=== PATIENT | female | born 1975 | race Two or more races ===

== ENCOUNTER 2022-11-23 13:38 | Emergency (ER) | payer OTHER ==
[~2022-11-23] VITALS: Ht 162.6 cm; Wt 59.0 kg
[2022-11-23 13:40] VITALS: BP 111/63; TEMP 98.3; O2SAT 100
[2022-11-23] MEDS ORDERED: LIDOCAINE 1%-EPI 1:100,000 20 ML VIAL ONE (14:09)
[2022-11-23] MEDS ORDERED: TDAP [DIPH/PERTUSSIS/TET] 0.5 ML VIAL IM ONE ×2 (14:23→14:30)
[2022-11-23] MEDS ORDERED: LIDOCAINE 1%-EPI 1:100,000 20 ML VIAL TP ONE (14:30)
== END 2022-11-23 14:46 | disposition home or self-care (01) ==
LOC: ER 13:54
DX: S01.01XA Laceration without foreign body of scalp, initial encounter (principal); W20.8XXA Other cause of strike by thrown, projected or falling object, initial encounter; Y93.89 Activity, other specified; Y92.89 Other specified places as the place of occurrence of the external cause; Y99.8 Other external cause status
CPT/HCPCS: 12002; 90471; 90715; 99283; A6403; J3490